=== PATIENT | male | born 1980 | race Caucasian/White ===

== ENCOUNTER 2023-03-24 07:10 | Emergency (ER) | payer MEDICAID ==
[~2023-03-24] VITALS: Ht 177.8 cm; Wt 79.8 kg
[2023-03-24 07:10] VITALS: BP_SYST 153; PULSE 101; RESP 18; TEMP 99.9; O2SAT 99
[2023-03-24] MEDS ORDERED: AMOX500C2 PO (07:26)
[2023-03-24] MEDS ORDERED: IBUP-1969 PO (07:26)
[2023-03-24 07:46] LABS: STREPTOCOCCUS A SCREEN (RAPID) NEGATIVE (NEGATIVE)
[2023-03-24 07:50] VITALS: BP_SYST 137; PULSE 93; RESP 18; TEMP 97.8; O2SAT 96
[2023-03-24 08:01] LABS: INFLUENZA TYPE A Negative (NEGATIVE); INFLUENZA TYPE B NEGATIVE (NEGATIVE)
== END 2023-03-24 07:45 | disposition home or self-care (01) ==
LOC: SED 07:10
DX: J03.90 Acute tonsillitis, unspecified (principal); Z79.899 Other long term (current) drug therapy; Z20.822 Contact with and (suspected) exposure to COVID-19
CPT/HCPCS: 36415; 86403; 87081; 99283

== ENCOUNTER 2023-07-14 00:59 | Emergency (ER) | payer MEDICAID ==
[~2023-07-14] VITALS: Ht 177.8 cm; Wt 77.6 kg
[~2023-07-14 00:59] MED LIST: AMOX500C2 PO; IBUP-1969 PO
[2023-07-14 01:11] VITALS: BP_SYST 124; PULSE 78; RESP 16; TEMP 97.1; O2SAT 97
[2023-07-14] MEDS ORDERED: LIDOCAINE 1%, 20 ML MDV 20 ML ONE (02:04)
[2023-07-14] MEDS ORDERED: BACITRACIN 1 GM OINT TP ONE ×2 (02:10→02:15)
[2023-07-14] MEDS ORDERED: CLIN-142 PO (02:11)
[2023-07-14 02:15] VITALS: BP_SYST 121; PULSE 70; RESP 16; TEMP 97.1; O2SAT 97
[2023-07-14] MEDS ORDERED: LIDOCAINE 1% 10 MG/ML, 20 ML MDV INJ ONE (02:15)
== END 2023-07-14 02:15 | disposition home or self-care (01) ==
LOC: SED 00:59
DX: S61.411A Laceration without foreign body of right hand, initial encounter (principal); Z79.899 Other long term (current) drug therapy; W55.01XA Bitten by cat, initial encounter; Y93.89 Activity, other specified; Y92.89 Other specified places as the place of occurrence of the external cause; Y99.8 Other external cause status
CPT/HCPCS: 99283; J2001